=== PATIENT | female | born 1990 | race American Indian/Alaskan Native ===

== ENCOUNTER 2019-07-23 22:27 | Emergency (ER) | payer SELFPAY ==
[2019-07-23] MEDS ORDERED: cloNIDine 0.2 MG TAB PO ONE (23:09)
[2019-07-23] MEDS ORDERED: cloNIDine 0.2 MG TAB ONE (23:10)
--- NOTE | 2019-07-23 23:39 | Emergency Department Report ---
ED ENT HPI - General Chief complaint: Dental/Oral Stated complaint: EARACHE/TOOTHACHE Time Seen by Provider: 07/23/19 23:15 Source: patient Mode of arrival: Ambulatory Limitations: No Limitations - History of Present Illness Initial comments: Patient is a 29-year-old female that presents to the Emergency room with complaints of toothache and right ear pain for 1 year. Patient's states she hasn't seen a dentist in many years. Patient states she has multiple cavities. Patient states her pain is a 10 out of 10. Patient states her pain is worse with eating and better with rest. Patient states she has a history of high blood pressure but is not taking blood pressure medication for many years. Patient denies chest pain. Patient denies fever chills. Patient denies blurry vision. Patient denies headache. Patient denies other medical problems. MD complaint: tooth pain, ear pain -: Sudden, year(s) Location: R ear Severity: severe Severity scale (0 -10): 10 Quality: stabbing Consistency: constant Improves with: rest Worsens with: eating, movement Context- Dental: history of dental caries, poor dental care Associated Symptoms: toothache. denies: fever, cough, gum swelling, pain with swallowing, sore throat, tinnitus, hearing loss, discharge from ear, rhinorrhea - Related Data Previous Rx's Medication Instructions Recorded Last Taken Type Amlodipine Besylate [Norvasc] 5 mg PO DAILY 15 Days #15 tablet 07/23/19 Unknown Rx Amoxicillin/K Clav Tab [Augmentin 1 tab PO Q12HR 10 Days #20 tab 07/23/19 Unknown Rx 875 mg] Allergies Allergy/AdvReac Type Severity Reaction Status Date / Time No Known Allergies Allergy Verified 07/24/19 00:50 ED Dental HPI - General Chief complaint: Dental/Oral Stated complaint: EARACHE/TOOTHACHE Time Seen by Provider: 07/23/19 23:29 Source: patient Mode of arrival: Ambulatory Limitations: No Limitations - Related Data Previous Rx's Medication Instructions Recorded Last Taken Type Amlodipine Besylate [Norvasc] 5 mg PO DAILY 15 Days #15 tablet 07/23/19 Unknown Rx Amoxicillin/K Clav Tab [Augmentin 1 tab PO Q12HR 10 Days #20 tab 07/23/19 Unknown Rx 875 mg] Allergies Allergy/AdvReac Type Severity Reaction Status Date / Time No Known Allergies Allergy Verified 07/24/19 00:50 ED Review of Systems ROS: Stated complaint: EARACHE/TOOTHACHE Other details as noted in HPI Constitutional: denies: chills, fever Eyes: denies: eye pain, eye discharge, vision change ENT: ear pain, dental pain. denies: throat pain Respiratory: denies: cough, shortness of breath, wheezing Cardiovascular: denies: chest pain, palpitations Endocrine: no symptoms reported Gastrointestinal: denies: abdominal pain, nausea, diarrhea Genitourinary: denies: urgency, dysuria, discharge Musculoskeletal: denies: back pain, joint swelling, arthralgia Skin: denies: rash, lesions Neurological: denies: headache, weakness, paresthesias Psychiatric: denies: anxiety, depression Hematological/Lymphatic: denies: easy bleeding, easy bruising ED Past Medical Hx - Past Medical History Previous Medical History?: Yes Hx Hypertension: Yes Additional medical history: Obesity, Brooks Palsy - Surgical History Past Surgical History?: No - Family History Family history: no significant - Social History Smoking Status: Current Every Day Smoker Substance Use Type: None - Medications Home Medications: Home Medications Medication Instructions Recorded Confirmed Last Taken Type Amlodipine Besylate [Norvasc] 5 mg PO DAILY 15 Days #15 tablet 07/23/19 Unknown Rx Amoxicillin/K Clav Tab [Augmentin 1 tab PO Q12HR 10 Days #20 tab 07/23/19 Unknown Rx 875 mg] ED Physical Exam - General Limitations: No Limitations General appearance: alert, in no apparent distress - Head Head exam: Present: atraumatic, normocephalic - Eye Eye exam: Present: normal appearance, PERRL Pupils: Present: normal accommodation - ENT ENT exam: Present: normal orophraynx, mucous membranes moist, TM's normal bilaterally, normal external ear exam - Expanded ENT Exam Expanded Teeth exam: Present: dental caries. Absent: fractured tooth #, dental tenderness #, gingival enlargement - Neck Neck exam: Present: normal inspection - Respiratory Respiratory exam: Present: normal lung sounds bilaterally. Absent: respiratory distress - Cardiovascular Cardiovascular Exam: Present: regular rate, normal rhythm. Absent: systolic murmur, diastolic murmur, rubs, gallop - GI/Abdominal GI/Abdominal exam: Present: soft, normal bowel sounds - Extremities Exam Extremities exam: Present: normal inspection - Back Exam Back exam: Present: normal inspection - Neurological Exam Neurological exam: Present: alert, oriented X3 - Psychiatric Psychiatric exam: Present: normal affect, normal mood - Skin Skin exam: Present: warm, dry, intact, normal color. Absent: rash ED Course Vital Signs 07/23/19 07/23/19 07/23/19 22:32 23:12 23:34 Temperature 98.9 F Pulse Rate 103 H 105 H 84 Respiratory 18 18 Rate Blood Pressure 231/142 231/142 Blood Pressure 153/72 [Left] O2 Sat by Pulse 100 100 Oximetry - Reevaluation(s) Reevaluation #1: Initial evaluation. Patient's current blood pressure is 170/100. We will continue to monitor patient's blood pressure. Patient's clinical findings consistent with elevated blood pressure secondary to noncompliance and also dental caries. Patient given antibiotics and Norvasc. 07/23/19 23:31 Reevaluation #2: I discussed clinical findings with the patient. Patient stable at discharge. Patient discharged home. I discussed plan of care patient. Patient agrees here. I discussed discharge instructions with patient. Patient reports understanding of discharge instructions. 07/23/19 23:50 ED Medical Decision Making - EKG Data -: EKG Interpreted by Me EKG shows normal: sinus rhythm, axis, intervals, QRS complexes, ST-T waves Rate: normal - Medical Decision Making Patient is a 29-year-old female that presents emergency room with complaints of toothache for a year. Patient found to have multiple dental caries. Patient will be treated for a dental infection with Augmentin. During exam no dental abscess or gingival swelling noted. Patient triaged noted to have extremely elevated blood pressure. Patient has history of hypertension but doesn't take blood pressure medications and many years. Patient given a 0.2 mg clonidine and her blood pressure responded well. Patient discharged home with Norvasc. - Differential Diagnosis toothache. earache. hbp Critical Care Time: Yes Critical care time in (mins) excluding proc time.: 35 Critical care attestation.: If time is entered above; I have spent that time in minutes in the direct care of this critically ill patient, excluding procedure time. Critical Care Time: 35 minutes ED Disposition Clinical Impression: Malignant hypertension, Dental caries Hypertension Qualifiers: Hypertension type: essential hypertension Qualified Code(s): I10 - Essential (primary) hypertension Disposition: TO HOME OR SELFCARE Is pt being admited?: No Does the pt Need Aspirin: No Condition: Stable Instructions: Dental Caries (ED), Heart Healthy Diet (ED), How to Take a Blood Pressure (ED), DASH Eating Plan (ED), Low Sodium Diet (ED), Hypertension (ED) Additional Instructions: Patient to follow up with primary care in 2-3 days. Patient to follow up with a dentist in 2-3 days. Patient to take medications as directed. Patient increase water. Patient to eat a heart healthy and low-salt diet. Patient to increase water. Patient to monitor blood pressure. Patient to take blood pressure log to primary care follow-up. Prescriptions: Amoxicillin/K Clav Tab [Augmentin 875 mg] 1 tab PO Q12HR 10 Days #20 tab Amlodipine Besylate [Norvasc] 5 mg PO DAILY 15 Days #15 tablet Referrals: [facility] [Outside] - 2-3 Days Time of Disposition: 23:42
[2019-07-23 23:46] VITALS: BP 153/72
== END 2019-07-24 00:05 | disposition home or self-care (01) ==
LOC: ED 22:27
DX: I10 Essential (primary) hypertension (principal); K02.9 Dental caries, unspecified; F17.200 Nicotine dependence, unspecified, uncomplicated; Z79.899 Other long term (current) drug therapy
CPT/HCPCS: 93005; 93010

== ENCOUNTER 2019-11-05 02:19 | Emergency (ER) | payer SELFPAY ==
[2019-11-05] MEDS ORDERED: AMOXICILLIN/K CLAV 875/125MG TAB PO ONE (02:40)
[2019-11-05] MEDS ORDERED: HYDROcodone/ACETAMINOPHEN 7.5-325MG TAB PO ONE (02:40)
[2019-11-05] MEDS ORDERED: ONDANSETRON 4 MG ODT TAB PO ONE (02:41)
[2019-11-05] MEDS ORDERED: IBUPROFEN 600 MG TAB PO ONE (02:41)
--- NOTE | 2019-11-05 02:47 | Emergency Department Report ---
ED General Adult HPI - General Chief complaint: Dental/Oral Stated complaint: TOOTHACHE Source: patient Mode of arrival: Ambulatory Limitations: No Limitations - History of Present Illness Initial comments: Patient is a 29-year-old -Turk[place] female with a history of hypertension, chronic dental abscesses and dental caries and morbid obesity presents to the ED with complaint of acute exacerbation of her chronic dental pain characterized by severe right maxillary premolar and molar toothache with swollen gums and pain for the last 1 week worse in the last 2 days. Patient denies dizziness, chest pain, shortness of breath, fever, chills, nausea, vomiting, sore throat, cough, nasal and sinus congestion, change in vision or headache. Patient also states that she has not been on blood pressure medications for over 1 year having ran out of her insurance. Patient also denies traumatic injury or syncope and palpitations. MD Complaint: swollen gum; dental pain -: Sudden, week(s) (1) Location: mouth Radiation: non-radiation Severity scale (0 -10): 8 Quality: aching, sharp Consistency: constant Improves with: none Worsens with: none Associated Symptoms: denies other symptoms. denies: confusion, chest pain, cough, diaphoresis, fever/chills, headaches, loss of appetite, malaise, nausea/vomiting, seizure, shortness of breath, weakness Treatments Prior to Arrival: none - Related Data Previous Rx's Medication Instructions Recorded Last Taken Type Amlodipine Besylate [Norvasc] 5 mg PO DAILY 15 Days #15 tablet 07/23/19 Unknown Rx Amoxicillin/K Clav Tab [Augmentin 1 tab PO Q12HR 10 Days #20 tab 07/23/19 Unknown Rx 875 mg] Acetaminophen/Codeine [Tylenol 1 tab PO Q6H PRN #12 tab 11/05/19 Unknown Rx /Codeine # 3 tab] Clindamycin [Clindamycin CAP] 300 mg PO Q8HR #60 capsule 11/05/19 Unknown Rx Ketorolac [Toradol] 10 mg PO Q8H PRN #20 tablet 11/05/19 Unknown Rx Lisinopril/Hydrochlorothiazide 1 tab PO QDAY #30 tab 11/05/19 Unknown Rx [Zestoretic 20-12.5 mg] Allergies Allergy/AdvReac Type Severity Reaction Status Date / Time No Known Allergies Allergy Verified 07/24/19 00:50 ED Review of Systems ROS: Stated complaint: TOOTHACHE Other details as noted in HPI Constitutional: denies: chills, fever Eyes: denies: eye pain, eye discharge, vision change ENT: dental pain, other (Swelling, painful right maxillary gum and premolar molar toothache). denies: ear pain, throat pain Respiratory: denies: cough, shortness of breath, wheezing Cardiovascular: denies: chest pain, palpitations, syncope Endocrine: no symptoms reported Gastrointestinal: denies: abdominal pain, nausea, diarrhea Genitourinary: denies: urgency, dysuria, discharge Musculoskeletal: denies: back pain, joint swelling, arthralgia Skin: denies: rash, lesions Neurological: denies: headache, weakness, paresthesias Psychiatric: denies: anxiety, depression Hematological/Lymphatic: denies: easy bleeding, easy bruising ED Past Medical Hx - Past Medical History Previous Medical History?: Yes Hx Hypertension: Yes Additional medical history: Obesity, Brooks Palsy - Surgical History Past Surgical History?: No - Social History Smoking Status: Current Every Day Smoker Substance Use Type: Alcohol - Medications Home Medications: Home Medications Medication Instructions Recorded Confirmed Last Taken Type Amlodipine Besylate [Norvasc] 5 mg PO DAILY 15 Days #15 tablet 07/23/19 Unknown Rx Amoxicillin/K Clav Tab [Augmentin 1 tab PO Q12HR 10 Days #20 tab 07/23/19 Unknown Rx 875 mg] Acetaminophen/Codeine [Tylenol 1 tab PO Q6H PRN #12 tab 11/05/19 Unknown Rx /Codeine # 3 tab] Clindamycin [Clindamycin CAP] 300 mg PO Q8HR #60 capsule 11/05/19 Unknown Rx Ketorolac [Toradol] 10 mg PO Q8H PRN #20 tablet 11/05/19 Unknown Rx Lisinopril/Hydrochlorothiazide 1 tab PO QDAY #30 tab 11/05/19 Unknown Rx [Zestoretic 20-12.5 mg] ED Physical Exam - General Limitations: No Limitations General appearance: alert, in no apparent distress - Head Head exam: Present: atraumatic, normocephalic, normal inspection - Eye Eye exam: Present: normal appearance, PERRL, EOMI Pupils: Present: normal accommodation - ENT ENT exam: Present: normal orophraynx, mucous membranes moist, TM's normal bilaterally, normal external ear exam, other (Swollen, severely tender right maxillary gingiva with severely tender premolar and molar teeth) - Neck Neck exam: Present: normal inspection, full ROM. Absent: tenderness, lymphadenopathy - Respiratory Respiratory exam: Present: normal lung sounds bilaterally. Absent: respiratory distress, wheezes, rales, rhonchi, chest wall tenderness, accessory muscle use, decreased breath sounds - Cardiovascular Cardiovascular Exam: Present: normal rhythm, tachycardia, normal heart sounds. Absent: systolic murmur, diastolic murmur, rubs, gallop - GI/Abdominal GI/Abdominal exam: Present: soft, normal bowel sounds. Absent: tenderness, guarding, hyperactive bowel sounds, hypoactive bowel sounds - Extremities Exam Extremities exam: Present: normal inspection, full ROM, normal capillary refill - Back Exam Back exam: Present: normal inspection, full ROM. Absent: tenderness, CVA tenderness (L), muscle spasm, paraspinal tenderness, vertebral tenderness - Neurological Exam Neurological exam: Present: alert, oriented X3, CN II-XII intact, normal gait, reflexes normal - Psychiatric Psychiatric exam: Present: normal affect, normal mood - Skin Skin exam: Present: warm, dry, intact, normal color. Absent: rash ED Course Vital Signs 11/05/19 11/05/19 02:24 03:12 Temperature 99.3 F Pulse Rate 109 H 88 Respiratory 14 17 Rate Blood Pressure 192/119 Blood Pressure 155/82 [Right] O2 Sat by Pulse 100 99 Oximetry ED Medical Decision Making - Medical Decision Making This is a 29-year-old female who presented to the ED with complaint of a worsening painful swollen right maxillary gums with premolar and molar toothache for 1 week, worse in the last 2 days. Patient also admits to being noncompliant with her hypertension by not taking any medication because of lack of medical insurance. In the ED, patient is alert and oriented x3 and is not in distress but appears to be in significant pain, and tachycardic and hypertensive in triage. Patient was treated for pain in the ED and also given initial oral antibiotics in the ED. On reevaluation, patient's pain is well controlled with medications, patient's tachycardia also resolved prior to discharge. Patient was discharged home with a prescription of oral antibiotics, pain medications, and initial hypertension medication. Patient was advised to follow-up with [facility] dental clinic in 7 to 10 days for reevaluation. Patient was also advised to follow-up with his [facility] clinic to establish care for her chronic poorly controlled hypertension. Patient was advised to return to the ED immediately if symptoms get worse. - Differential Diagnosis dental abscess; dental caries; gingivitis Critical care attestation.: If time is entered above; I have spent that time in minutes in the direct care of this critically ill patient, excluding procedure time. ED Disposition Clinical Impression: Dental abscess, Chronic gingivitis, Dental caries, Uncontrolled stage 2 hypertension Disposition: TO HOME OR SELFCARE Is pt being admited?: No Does the pt Need Aspirin: No Condition: Stable Instructions: Dental Abscess (ED), Dental Caries (ED), Gingivitis (ED), Hypertension (ED) Additional Instructions: Take medication with food, drink plenty of fluids and follow-up with your primary care physician in 7 to 10 days for reevaluation. Consider following up with a [facility] dental clinic for further evaluation. Return to the ED immediately if symptoms get worse. Prescriptions: Clindamycin [Clindamycin CAP] 300 mg PO Q8HR #60 capsule Ketorolac [Toradol] 10 mg PO Q8H PRN #20 tablet PRN Reason: Pain Acetaminophen/Codeine [Tylenol /Codeine # 3 tab] 1 tab PO Q6H PRN #12 tab PRN Reason: Pain , Severe (7-10) Lisinopril/Hydrochlorothiazide [Zestoretic 20-12.5 mg] 1 tab PO QDAY #30 tab Referrals: [facility] [Outside] - 3-5 Days [facility] [Outside] - 3-5 Days Time of Disposition: 02:49 Print Language: BANGLADESHI
[2019-11-05 03:24] VITALS: BP 155/82
== END 2019-11-05 03:12 | disposition home or self-care (01) ==
LOC: ED 02:19
DX: K04.7 Periapical abscess without sinus (principal); K02.9 Dental caries, unspecified; K05.10 Chronic gingivitis, plaque induced; E11.9 Type 2 diabetes mellitus without complications; E66.01 Morbid (severe) obesity due to excess calories; F17.200 Nicotine dependence, unspecified, uncomplicated; Z79.899 Other long term (current) drug therapy
CPT/HCPCS: 99282; Q0162

== ENCOUNTER 2019-12-24 22:34 | Emergency (ER) | payer SELFPAY ==
[2019-12-24 23:32] VITALS: BP 210/128
--- NOTE | 2019-12-24 23:54 | Emergency Department Report ---
ED ENT HPI - General Chief complaint: Dental/Oral Stated complaint: TOOTHACHE Time Seen by Provider: 12/24/19 23:12 Source: patient Mode of arrival: Ambulatory Limitations: No Limitations - History of Present Illness Initial comments: This is a pleasant 29-year-old female presents the emergency department with a chief complaint of right lower dental pain over the past week. Patient denies any injuries. She reports the pain is aggravated with chewing. Pain is rated as a 9 out of 10 described as dull and throbbing. No radiating pain. She denies any known past medical history other than hypertension which she usually takes lisinopril/hydrochlorothiazide however has been out of it. She denies any associated chest pain, shortness of breath, headache, dizziness, blurry vision, nausea, vomiting, diarrhea or any other associated symptoms. - Related Data Previous Rx's Medication Instructions Recorded Last Taken Type Amlodipine Besylate [Norvasc] 5 mg PO DAILY 15 Days #15 tablet 07/23/19 Unknown Rx Amoxicillin/K Clav Tab [Augmentin 1 tab PO Q12HR 10 Days #20 tab 07/23/19 Unknown Rx 875 mg] Acetaminophen/Codeine [Tylenol 1 tab PO Q6H PRN #12 tab 11/05/19 Unknown Rx /Codeine # 3 tab] Clindamycin [Clindamycin CAP] 300 mg PO Q8HR #60 capsule 11/05/19 Unknown Rx Ketorolac [Toradol] 10 mg PO Q8H PRN #20 tablet 11/05/19 Unknown Rx Lisinopril/Hydrochlorothiazide 1 tab PO QDAY #30 tab 12/25/19 Unknown Rx [Zestoretic 20-12.5 mg] Penicillin Vk [Veetids TAB] 500 mg PO QID #80 tablet 12/25/19 Unknown Rx traMADoL [Ultram 50 MG tab] 50 mg PO Q4HR PRN #12 tablet 12/25/19 Unknown Rx Allergies Allergy/AdvReac Type Severity Reaction Status Date / Time No Known Allergies Allergy Verified 07/24/19 00:50 ED Dental HPI - General Chief complaint: Dental/Oral Stated complaint: TOOTHACHE Time Seen by Provider: 12/24/19 23:12 Source: patient Mode of arrival: Ambulatory Limitations: No Limitations - Related Data Previous Rx's Medication Instructions Recorded Last Taken Type Amlodipine Besylate [Norvasc] 5 mg PO DAILY 15 Days #15 tablet 07/23/19 Unknown Rx Amoxicillin/K Clav Tab [Augmentin 1 tab PO Q12HR 10 Days #20 tab 07/23/19 Unknown Rx 875 mg] Acetaminophen/Codeine [Tylenol 1 tab PO Q6H PRN #12 tab 11/05/19 Unknown Rx /Codeine # 3 tab] Clindamycin [Clindamycin CAP] 300 mg PO Q8HR #60 capsule 11/05/19 Unknown Rx Ketorolac [Toradol] 10 mg PO Q8H PRN #20 tablet 11/05/19 Unknown Rx Lisinopril/Hydrochlorothiazide 1 tab PO QDAY #30 tab 12/25/19 Unknown Rx [Zestoretic 20-12.5 mg] Penicillin Vk [Veetids TAB] 500 mg PO QID #80 tablet 12/25/19 Unknown Rx traMADoL [Ultram 50 MG tab] 50 mg PO Q4HR PRN #12 tablet 12/25/19 Unknown Rx Allergies Allergy/AdvReac Type Severity Reaction Status Date / Time No Known Allergies Allergy Verified 07/24/19 00:50 ED Review of Systems ROS: Stated complaint: TOOTHACHE Other details as noted in HPI Comment: All other systems reviewed and negative Constitutional: denies: chills, fever Eyes: denies: eye pain, eye discharge, vision change ENT: as per HPI, dental pain. denies: ear pain, throat pain Respiratory: denies: cough, shortness of breath, wheezing Cardiovascular: denies: chest pain, palpitations Endocrine: no symptoms reported Gastrointestinal: denies: abdominal pain, nausea, diarrhea Genitourinary: denies: urgency, dysuria, discharge Musculoskeletal: denies: back pain, joint swelling, arthralgia Skin: denies: rash, lesions Neurological: denies: headache, weakness, paresthesias Psychiatric: denies: anxiety, depression Hematological/Lymphatic: denies: easy bleeding, easy bruising ED Past Medical Hx - Past Medical History Previous Medical History?: Yes Hx Hypertension: Yes Additional medical history: Obesity, Brooks Palsy - Surgical History Past Surgical History?: No - Social History Smoking Status: Current Every Day Smoker - Medications Home Medications: Home Medications Medication Instructions Recorded Confirmed Last Taken Type Amlodipine Besylate [Norvasc] 5 mg PO DAILY 15 Days #15 tablet 07/23/19 Unknown Rx Amoxicillin/K Clav Tab [Augmentin 1 tab PO Q12HR 10 Days #20 tab 07/23/19 Unknown Rx 875 mg] Acetaminophen/Codeine [Tylenol 1 tab PO Q6H PRN #12 tab 11/05/19 Unknown Rx /Codeine # 3 tab] Clindamycin [Clindamycin CAP] 300 mg PO Q8HR #60 capsule 11/05/19 Unknown Rx Ketorolac [Toradol] 10 mg PO Q8H PRN #20 tablet 11/05/19 Unknown Rx Lisinopril/Hydrochlorothiazide 1 tab PO QDAY #30 tab 12/25/19 Unknown Rx [Zestoretic 20-12.5 mg] Penicillin Vk [Veetids TAB] 500 mg PO QID #80 tablet 12/25/19 Unknown Rx traMADoL [Ultram 50 MG tab] 50 mg PO Q4HR PRN #12 tablet 12/25/19 Unknown Rx ED Physical Exam - General Limitations: No Limitations General appearance: alert, in no apparent distress - Head Head exam: Present: atraumatic, normocephalic - Eye Eye exam: Present: normal appearance, PERRL, EOMI - ENT ENT exam: Present: normal exam, normal orophraynx, mucous membranes moist, other (No peritonsillar bulging, no retropharyngeal bulging, no tongue elevation or submandibular swelling, no trismus) - Neck Neck exam: Present: normal inspection, full ROM. Absent: tenderness, meningismus - Respiratory Respiratory exam: Present: normal lung sounds bilaterally. Absent: respiratory distress, wheezes, rales, rhonchi, stridor - Cardiovascular Cardiovascular Exam: Present: regular rate, normal rhythm, normal heart sounds. Absent: systolic murmur, diastolic murmur, rubs, gallop - GI/Abdominal GI/Abdominal exam: Present: soft, normal bowel sounds. Absent: distended, tenderness, guarding, rebound, rigid - Extremities Exam Extremities exam: Present: normal inspection, full ROM, normal capillary refill. Absent: tenderness - Back Exam Back exam: Present: normal inspection, full ROM. Absent: tenderness, CVA tenderness (R), CVA tenderness (L) - Neurological Exam Neurological exam: Present: alert, oriented X3 - Psychiatric Psychiatric exam: Present: normal affect, normal mood - Skin Skin exam: Present: warm, dry, intact, normal color. Absent: rash ED Course Vital Signs 12/24/19 22:52 Temperature 98.8 F Pulse Rate 94 H Respiratory 18 Rate Blood Pressure 210/128 O2 Sat by Pulse 100 Oximetry ED Medical Decision Making - Medical Decision Making Patient is nontoxic in no acute distress. Vitals were relatively normal other than she was significantly hypertensive. She was relatively asymptomatic as far as her hypertension with no headache, chest pain, weakness, swelling in her legs or any other associated symptoms to suggest symptomatic hypertension. Patient reports she is simply out of her medications. I will refill her medications and I am educated about the importance of close follow-up and that if she neglects to keep her blood pressure low this could result in stroke, heart attack, heart failure or . She verbalized understanding of these instructions. We will treat her pain with tramadol and her suspected dental infection with penicillin. I did offer to attempt a needle aspiration of a suspected abscess however the patient politely declined and preferred antibiotics only. Patient was instructed to return the emerge department if she develops any changing worsening symptoms. She verbalized understanding of the diagnosis, treatment plan and follow-up instructions and all of her questions were answered. - Differential Diagnosis abscess, dental caries, cellulitis Critical care attestation.: If time is entered above; I have spent that time in minutes in the direct care of this critically ill patient, excluding procedure time. ED Disposition Clinical Impression: Asymptomatic hypertension, Pain due to dental caries Disposition: TO HOME OR SELFCARE Is pt being admited?: No Condition: Stable Instructions: Hypertension (ED), Dental Abscess (ED) Prescriptions: traMADoL [Ultram 50 MG tab] 50 mg PO Q4HR PRN #12 tablet PRN Reason: Pain Penicillin Vk [Veetids TAB] 500 mg PO QID #80 tablet Lisinopril/Hydrochlorothiazide [Zestoretic 20-12.5 mg] 1 tab PO QDAY #30 tab Referrals: [facility] [Provider Group] - 3-5 Days SHERLEY RAPP MD [Staff Physician] - 3-5 Days Time of Disposition: 00:00
== END 2019-12-25 00:24 | disposition home or self-care (01) ==
LOC: ED 22:34
DX: K02.9 Dental caries, unspecified (principal); F17.200 Nicotine dependence, unspecified, uncomplicated; I10 Essential (primary) hypertension; G51.0 Bell's palsy; Z79.899 Other long term (current) drug therapy
CPT/HCPCS: 99282

== ENCOUNTER 2020-02-22 09:50 | Emergency (ER) | payer SELFPAY ==
[2020-02-22 09:57] VITALS: BP 174/116
--- NOTE | 2020-02-22 10:49 | Emergency Department Report ---
Chief Complaint: Dental/Oral Stated Complaint: TOOTH PAIN Time Seen by Provider: 02/22/20 10:45 - HPI History of Present Illness: dental pain l side this is chronic and pt has been in er several times for same pmh htn - ROS Review of Systems: dental pain no fever no chills - Exam Vital Signs: Vital Signs 02/22/20 09:53 Temperature 98 F Pulse Rate 86 Respiratory 18 Rate Blood Pressure 174/116 O2 Sat by Pulse 97 Oximetry taking bp med but states she is having dental pain no cp no sob no headache Physical Exam: vss no trismus abc intact no drooling MSE screening note: Focused history and physical exam performed. Due to findings the following was ordered: Patient discussed with doctor:: DEE SERRANO III ED Disposition for MSE Clinical Impression: Pain, dental, History of hypertension, Nonadherence to medical treatment Is pt being admited?: No Does the pt Need Aspirin: No Condition: Stable Additional Instructions: MOTRIN OR TYLENOL FOR PAIN FOLLOW UP WITH DENTIST AND PCP REFERRALS BELOW Referrals: SHERLEY RAPP MD [Staff Physician] - 3-5 Days [facility] [Outside] - 3-5 Days [facility] [Outside] - 3-5 Days [facility] [Outside] - 3-5 Days Time of Disposition: 10:47
== END 2020-02-22 10:51 | disposition left against medical advice (07) ==
LOC: ED 09:50
DX: K08.89 Other specified disorders of teeth and supporting structures (principal); Z53.21 Procedure and treatment not carried out due to patient leaving prior to being seen by health care provider